=== PATIENT | male | born 2000 | race Caucasian/White ===

== ENCOUNTER 2020-02-05 10:08 | Emergency (ER) | payer BC ==
[~2020-02-05] VITALS: Ht 175.3 cm; Wt 61.3 kg
[2020-02-05 10:21] VITALS: BP 105/72
--- NOTE | 2020-02-05 10:32 | PHYS DOC ---
General Adult EDM: Chief Complaint: FOOT INJURY PAIN HPI: HPI: Patient is a 19 y/o male who presents to the ED with right 5th toe pain after running it into a door last night. He took some Ibuprofen and iced his toe which provided mild relief, pain is worsened when he moves his toes. Mild severity. Denies any other associated symptoms. Review of Systems: Review of Systems: Constitutional: Denies fever or chills Eyes: Denies redness or eye pain HENT: Denies nasal congestion or sore throat Respiratory: Denies cough or shortness of breath Cardiovascular: Denies chest pain or palpitations GI: Denies abdominal pain, nausea, or vomiting : Denies dysuria or hematuria Musculoskeletal: Reports 5th digit toe pain; Denies back pain or joint pain Integument: Denies rash or skin lesions Neurologic: Denies headache, focal weakness or sensory changes Complete systems were reviewed and found to be within normal limits, except as documented in this note. Allergies: Allergies: Allergies Coded Allergies Type Severity Reaction Last Updated Verified No Known Drug Allergies 02/05/20 No Physical Exam: PE: Constitutional: Well developed, well nourished, no acute distress, non-toxic appearance HENT: Normocephalic, atraumatic Eyes: PERRL, EOMI, conjunctiva normal, no discharge Neck: Normal range of motion, no tenderness, supple Lungs & Thorax: No respiratory distress, equal chest rise and fall Abdomen: Soft, no tenderness Skin: Warm, dry, no erythema, no rash Back: No tenderness, no CVA tenderness Extremities:Right foot 5th digit without any obvious bony deformity or ecchy mosis, ROM intact, no edema Neurologic: Alert and oriented X 3, normal motor function, normal sensory function, no focal deficits noted Psychologic: Affect normal, judgment normal EKG: EKG: [] Radiology/Procedures: Radiology/Procedures: PROCEDURE: FOOT RIGHT 3V EXAM: Right foot, 3 views. HISTORY: Blunt trauma. COMPARISON: None. FINDINGS: 3 views of the right foot are obtained. There is a minimally displaced oblique fracture of the distal aspect of the fifth proximal phalanx, with reticular fracture line extension to the proximal interphalangeal joint. No additional fracture is seen. There is no foreign body. IMPRESSION: Minimally displaced fifth proximal thighs fracture. Electronically signed by: Daphne Huffman MD (02/05/2020 10:46 AM) [id number] Course & Med Decision Making: Course & Med Decision Making Pertinent Imaging studies reviewed. (See chart for details) Patient is a 19 y/o male who presents to the ED with right foot 5th digit pain. Foot X-ray showed Minimally displaced fifth proximal thighs fracture. Plan for discharge with a cast shoe Patient stable for discharge with outpatient follow-up with PCP. Discussed findings and plan with patient, who acknowledges understanding and agreement. Salty Disclaimer: Salty Disclaimer: This electronic medical record was generated, in whole or in part, using a voice recognition dictation system. Departure Departure: Impression: Primary Impression: Toe fracture, right Qualified Codes: S92.524A - Nondisplaced fracture of middle phalanx of right lesser toe(s), initial encounter for closed fracture Disposition: 01 DC HOME SELF CARE/HOMELESS Condition: STABLE Referrals: PCP,NO (PCP) JULIANE MONTANEZ MD Patient Instructions: Cast Shoe, Toe Fracture, [id number] Additional Instructions: Use post op shoe for comfort for next few weeks. Use over the counter Tylenol and/or Ibuprofen for pain or discomfort. ICE area 20 min on the leave off next 20 mins as needed for pain/swelling. Repeat several times daily for next few days. MARCIO ACUNA DO Feb 05, 2020 10:32
--- NOTE | 2020-02-05 10:49 | RAD ---
EXAM: Right foot, 3 views. HISTORY: Blunt trauma. COMPARISON: None. FINDINGS: 3 views of the right foot are obtained. There is a minimally displaced oblique fracture of the distal aspect of the fifth proximal phalanx, with reticular fracture line extension to the proximal interphalangeal joint. No additional fracture is seen. There is no foreign body. IMPRESSION: Minimally displaced fifth proximal thighs fracture. Electronically signed by: Daphne Huffman MD (02/05/2020 10:46 AM) [id number]
== END 2020-02-05 10:52 | disposition home or self-care (01) ==
LOC: ER 10:08
DX: S92.524A Nondisplaced fracture of middle phalanx of right lesser toe(s), initial encounter for closed fracture (principal); Y29.XXXA Contact with blunt object, undetermined intent, initial encounter; Y93.89 Activity, other specified; Y92.89 Other specified places as the place of occurrence of the external cause; Y99.8 Other external cause status
CPT/HCPCS: 73630; 99283